=== PATIENT | female | born 1975 | race Caucasian/White ===

== ENCOUNTER 2017-03-26 10:22 | Day surgery (SDC) | payer OTHER ==
[~2017-03-26] VITALS: Ht 162.6 cm; Wt 108.9 kg
[~2017-03-26 10:22] MED LIST: CeFAZolin Inj 2 GM in IV Premix 1 EACH IV ONE; LISI1TAB11 PO; Lactated Ringer's 1,000 ML IV SCH; METF750T2 PO; MINO50CA2 PO
[2017-03-26] MEDS ORDERED: CeFAZolin Inj 2 gm / 50mL D5W IV ONE (10:53)
[2017-03-26] MEDS ORDERED: Lactated Ringer's 1,000 ML IV ONE (11:00)
[2017-03-26 11:01] VITALS: BP 138/89; PULSE 83; RESP 17; O2SAT 98
--- NOTE | 2017-03-26 11:49 | PCM.HPANE ---
Patient Data Date of Service: Mar 26, 2017 Surgeon Admitting Provider: Attending Provider:Niranjan Pierre MD Primary Care Physician:Carlos Cazares Other Provider:Mo Frye Anesthesia Reason for Visit Right Lower Cheek Mass Ht/WT & BMI Height (Feet): 5 Height (Inches): 4.00 Weight (Kilograms): 108.860 Body Mass Index 40.00 Allergies Coded Allergies: No Known Allergies (Unverified Allergy, Unknown, 03/24/17) Uncoded Allergies: BACTRIUM (Allergy, Intermediate, Rash, lethargic, 03/26/17) Past Anesthesia History Anesthesia History: Denies:: Abnormal Airway, Anesthesia Reactions, Difficult Intubation, Fam Anesthesia Reaction, Fam Malignant Hypertherm, Malignant Hyperthermia Diabetes History Hx Diabetes?: No Type of Diabetes: Type II Glycemic Control: Oral Medication MRSA MRSA: Yes (2013) Medications Hypertension Medication: Yes Home Meds Incl Beta Eber: No Reported Medications Minocycline 50 Mg [id number] Mg PO BID Ref 0 03/20/17 Lisinopril / HCTZ 20-25 mg 1 Each Tablet1 Each PO DAILY Ref 0 03/20/17 Metformin ER 750 Mg [id number] Mg PO DAILY Ref 0 03/20/17 History History of ENT Problems?: No HEENT History: Denies:: Abnormal Airway Cataracts Difficult Intubation Dysphagia Glaucoma Hearing Problem Sinus Problem TMJ Denture Type: Full- Upper Full- Lower Teeth Condition: Missing Teeth (Upper lower partial plate) Hx of Heart Problems?: No Cardiovascular History: Positive for:: Hypertension Denies:: AICD Abdominal Aortic Aneurism Atrial Fibrillation Cardiac Surgery Chest Pain Congestive Heart Failure Coronary Artery Disease Edema Heart Murmur Irregular Heartbeat Pacemaker Peripheral Vascular Rheumatic Fever Thrombophlebitis Valvular Heart Disease Hx of Respiratory Problem?: No Respiratory History: Denies:: Asthma COPD Chest Surgery Cough Dyspnea Emphysema Hemoptysis Oxygen Administration Pneumonia Pulmonary Embolism Tuberculosis Use of C-PAP Machine Use of Inhalers / NEBS Hx Neurologic Problems?: No Neurological History: Positive for:: Dizziness (With heavy Exercise) Denies:: Alzheimer's Disease CVA Dementia Headaches Multiple Sclerosis Parkinson's Disease Peripheral Neuropathy Seizures TIA Hx of GI Problems?: No Hx of Problems?: No Genitourinary History: Positive for:: Urinary Tract Infection Denies:: HX of Hemodialysis Kidney Stones HX of Peritoneal Dialysis: No Female Hx: Denies:: Currently Endometriosis Pelvic Inflammatory Problems with Breasts? Skin History: Positive for:: History Skin Disorders? (Rosasia) Denies:: Pressure Ulcers Hx Musculoskeletal Problems?: No Hx of Psycho/Social Problems?: No Hx Surgeries?: Yes (ankle surgery 2007) Other History: Positive for:: Hospitalization (1997) Denies:: Cancer Endocrine Disease Thyroid Disease History Blood Transfusions: Positive for:: Accept Blood Products? Denies:: Blood Transfuse Reaction Blood Transfusions Hx Diabetes: No Hx Alcohol Use: Yes (3-4 days a week) Stop/Bang Treated for Sleep Apnea?: No Do You Have a CPAP Machine?: No S-Snoring: Do You Snore Loudly: No T-Tired: feel tired, fatigued: No O-Obsered: Observed not breath: No P-Blood Pressure: treated: Yes B- Body Mass Index > 35 kg/m2: Yes A- Age over 50: No N- Neck Large Circumference: No G- Gender Male: No LAUREN Total Score: 2 Risk Assessment Category Category 1A: Patient has history of documented sleep apnea, and HAS NOT received any narcotic, sedative or anesthesia administration during this stay. Category 1B: Patient has history of documented sleep apnea, and HAS received any narcotic , sedative or anesthesia administration during this stay Category 2: Patient has SUSPECTED Obstructive Sleep Apnea, and HAS received any narcotic , sedative or anesthesia administration during this stay. Category 3: Patient has SUSPECTED Obstructive Sleep Apnea and HAS NOT received narcotic, sedative or anesthesia administration during this stay. Category 4: Outpatient in Procedural Areas with known sleep apnea or who screen positive for High Risk via the STOP/BANG questionnaire. Exam Exam Vital Signs Vital Signs Date Time Temp Pulse Resp B/P Pulse Ox O2 Delivery O2 Flow Rate FiO2 03/26/17 11:01 36.8 83 17 138/89 98 Room Air General Appearance: Alert, Oriented X3, Cooperative, No Acute Distress HEENT/AIRWAY: MP 2 Lungs: Clear to Auscultation, Normal Air Movement Heart: Exam Unremarkable, Regular Rate/Rhythm, Murmur (II/ POOJA at Ao Post without respiratory variance. Pt denies associated Sx.) Meds/Labs/Diagnostics Admission Meds Current Medications Lactated Ringer's (Lr) 1,000 ml @ ud STK-MED ONCE IV Last administered on 03/26t 11:00; Start 03/26/17 at 11:00; Stop 03/26/17 at 11:01; Status DC Plan Impression Patient chart reviewed, patient interviewed and anesthestic plan with risks, benefits, and alternatives discussed, and informed consent obtained. NPO per Anesth. Guidelines: Yes ASA Physical Status: ASA2 Mod Systemic Disease Anesthetic Plan: GA Bene/Risks/Altern/Consents: Yes HP Complete Prior to Induction: Yes Otis Mejía DO Mar 26, 2017 11:49
[2017-03-26] MEDS ORDERED: Lactated Ringer's 1,000 ML IV SCH (12:24)
[2017-03-26] MEDS ORDERED: Lactated Ringer's 500 ML IV PRN (12:24)
[2017-03-26] MEDS ORDERED: Phenylephrine 10,000 mCg/mL Inj IVPUSH PRN (12:25)
[2017-03-26] MEDS ORDERED: HYDROmorphone 1 mg/mL Inj IVPUSH PRN (12:25)
[2017-03-26] MEDS ORDERED: EPHEDrine Sulfate 50 mg/mL Inj IVPUSH PRN (12:25)
[2017-03-26] MEDS ORDERED: fentaNYL-PF 50 mCg/mL 2 mL Inj IVPUSH PRN (12:25)
[2017-03-26] MEDS ORDERED: Ondansetron 2 mg/mL 2 mL Inj IVPUSH PRN (12:25)
[2017-03-26] MEDS ORDERED: Dexamethasone 4 mg/mL Inj IVPUSH PRN (12:25)
[2017-03-26] MEDS ORDERED: MetoCLOpramide 5 mg/mL 2 mL Inj IVPUSH PRN (12:25)
[2017-03-26] MEDS ORDERED: Lidocaine 1%-Epi 1:100,000 20 mL Inj NERVEBLOCK ONE (12:38)
[2017-03-26] MEDS ORDERED: Bupivacaine-MPF 0.25% 30 mL Inj INFILTRATE ONE (12:39)
[2017-03-26] MEDS ORDERED: Bacitracin Ointment Packet TOPICAL ONE (12:39)
[2017-03-26 12:57] VITALS: BP 142/75; PULSE 78; RESP 16; O2SAT 99
[2017-03-26 13:17] VITALS: BP 140/85; PULSE 61; RESP 16; O2SAT 99
--- NOTE | 2017-03-26 13:23 | PCM.ANEP1 ---
Post Anesthesia PACU Phase 1 Assessment Date of Service: Mar 26, 2017 Vital Signs Vital Signs Date Time Temp Pulse Resp B/P Pulse Ox O2 Delivery O2 Flow Rate FiO2 03/26/17 13:17 61 16 140/85 99 Room Air 03/26/17 12:57 36 78 16 142/75 99 Room Air 03/26/17 11:01 36.8 83 17 138/89 98 Room Air Anesthetic Administered: MAC Level of Alertness: Awake, talking BURNS's with Equal Strength: Yes Pain: No Nausea or Vomiting: No CV Function & Hydration Stable: Yes Airway Device: Oxygen Delivery: Room Air Lungs: Clear to Auscultation, Normal Air Movement Dermatome Level: Full Sensation PACU Phase 2 Assessment Complications: No Patient Instructions Provided: N/A Otis Mejía DO Mar 26, 2017 13:23
--- NOTE | 2017-03-27 12:53 | OP ---
[address] [address] OPERATIVE REPORT PATIENT: OSCAR BOWMAN : 1975 MR#: [id number] ADMIT: 03/26/2017 JOB ID: [id number] DATE OF SURGERY: 03/26/2017 PREOPERATIVE DIAGNOSIS(ES): Right lower cheek mass, likely an epidermal inclusion cyst. POSTOPERATIVE DIAGNOSIS(ES): Right lower cheek mass, likely an epidermal inclusion cyst. PROCEDURE: 1. Excision of right cheek epidermal inclusion cyst 8 mm. 2. Layered closure of right cheek defect, total length of layered closure 2.6 cm. SURGEON: Niranjan Pierre MD GRAIN SHOVELER: None. ANESTHESIA: MAC with local. COMPLICATIONS: None apparent. SPECIMEN: Right lower cheek mass to Pathology. ESTIMATED BLOOD LOSS: Minimal. COMPLICATIONS: None apparent. INDICATIONS FOR PROCEDURE: This is a 41-year-old female patient with a slowly enlarging mass on the right lower cheek. At this point, excision is indicated for tissue diagnosis. PROCEDURE AND FINDINGS: The patient was identified in the preoperative area. Surgical site was marked. The patient was then taken back to the operating room and placed supine on the operating table. Appropriate time-outs were taken. MAC was induced smoothly. The patient was then prepped and draped in the usual sterile manner. Local anesthesia was then infiltrated to the surgical site consisting of 1% lidocaine with epinephrine and 0.25% Marcaine. It was noted that the patient has a mass that is approximately 8-9 mm in diameter. There is an area of skin indentation just inferolateral to this mass. Otherwise there is no obvious punctum. An ellipse was made over the mass. The ellipse was designed to lie along the relaxed skin tension line. An incision was then made with a #15 blade down through the skin. I then performed blunt and sharp dissection with a pair of iris scissors to dissect this mass free from the surrounding tissue. There was quite a bit of scarring, likely due to chronic inflammation and possible history of the rupture of the cyst. At certain areas of the excision I could visualize the cyst; however, the majority of the cyst was covered by a small amount of adipose tissue on resection. The cyst and overlying ellipse of skin was passed off to Pathology as a specimen. There was minimal bleeding. The incision was reapproximated first with a layer of 4-0 Monocryl deep dermal suture, followed by 4-0 Monocryl running subcuticular suture. The patient tolerated the procedure well. Needle count, sponge count, and instrument counts were correct at the end of the procedure. The patient was transported to recovery in stable condition.
--- NOTE | 2017-03-27 15:43 | PATH ---
SURGICAL PATHOLOGY Attending Physician:Niranjan Pierre CASE STATUS: Signed Out PATIENT NAME: OSCAR BOWMAN PID: [id number] : 1975 DATE COLLECTED:03/26/2017 20:19 SPECIMEN: Skin, biopsy CLINICAL HISTORY: RIGHT LOWER CHEEK MASS, LIKELY CYST 1). RIGHT CHEEK MASS FINAL DIAGNOSIS: 1.RIGHT LOWER CHEEK MASS: RUPTURED EPIDERMAL INCLUSION CYST. NO EVIDENCE OF MALIGNANCY. ICD10 L72.0 GROSS DESCRIPTION: The specimen is received in one formalin filled container labeled with the patient's name, sublabeled "right cheek mass" and consists of a 0.8 x 0.4 x 0.5 CM [place] ovoid piece of skin. The surgical margin is inked blue. The specimen is trisected and entirely submitted in one cassette. 03/26/2017DC MICRO DESCRIPTION: See diagnosis. ICD-9 CODES: CPT CODES: 54830 Electronically Signed Out Dinah Caballero MD [facility] [address], [place] [address] Technical component performed at [facility], [facility] [address], [place], [address]
== END 2017-03-26 23:59 | disposition home or self-care (01) ==
LOC: SAS 10:22
PROVIDERS: ATTEND Plastic Surgery
DX: L72.0 Epidermal cyst (principal); E11.9 Type 2 diabetes mellitus without complications; I10 Essential (primary) hypertension; Z79.84 Long term (current) use of oral hypoglycemic drugs
CPT/HCPCS: 11443; 12052; J7120